=== PATIENT | male | born 1960 | race Caucasian/White ===

== ENCOUNTER 2021-08-14 09:44 | Emergency (ER) | payer BC, SELFPAY ==
[2021-08-14 10:49] LABS: ALT (SGPT) 12 U/L (8-55); AST (SGOT) 15 U/L (5-34); Albumin 3.8 g/dL (3.4-4.8); Alkaline Phosphatase 70 U/L (40-110); Anion Gap 18 mmol/L (10-20); BUN (Urea Nitrogen) 16 mg/dL (8.4-25.7); Bilirubin, Total 1.4 mg/dL (0.2-1.2); Calc. Creatinine Clearance 0 mL/min (70-130); Calcium 9.3 mg/dL (7.8-10.44); Carbon Dioxide 22 mmol/L (23-31); Chloride 100 mmol/L (98-107); Globulin 4.3 g/dL (2.4-3.5); Glucose 154 mg/dL (80-115); Potassium 3.7 mmol/L (3.5-5.1); Protein, Total 8.1 g/dL (5.8-8.1); Sodium 136 mmol/L (136-145)
[2021-08-14 11:11] LABS: #Basophils 0.2 thou/uL (0.0-0.2); #Eosinphils 0.1 thou/uL (0.0-0.7); #Monocytes 1.2 thou/uL (0.11-0.59); #Neutrophils 8.6 thou/uL (1.40-6.50); %Basophils 1.4 % (0.0-1.0); %Eosinophils 0.5 % (0.0-10.0); %Lymphocytes 8.7 % (21.0-51.0); %Neutrophils 78.4 % (42.0-75.0); Mean Corpuscular HGB CONC 34.2 g/dL (32.0-36.0); Mean Corpuscular Hemoglobin 30.9 pg (27.0-31.0); Mean Corpuscular Volume 90.3 fL (78.0-98.0); Mean Platelet Volume 7.3 fL (7.4-10.4); Platelet Count 371 thou/uL (130-400); RBC Distribution Width 12.3 % (11.5-14.5)
[2021-08-14 11:52] LABS: SARS-CoV-2 NAA Rapid Test DETECTED (NotDetected)
[2021-08-14 13:44] LABS: Troponin I Less than 0.010 ng/mL (< 0.028)
== END 2021-08-14 14:04 | disposition home or self-care (01) ==
LOC: ERS 09:44
DX: U07.1 COVID-19 (principal); J12.82 Pneumonia due to coronavirus disease 2019; I10 Essential (primary) hypertension; E11.9 Type 2 diabetes mellitus without complications; Z79.84 Long term (current) use of oral hypoglycemic drugs
CPT/HCPCS: 71045; 80053; 83880; 84484; 85025; 93005; U0002

== ENCOUNTER 2021-08-15 19:59 | Inpatient (IN) | payer BC ==
[2021-08-15 20:41] LABS: #Basophils 0.2 thou/uL (0.0-0.2); #Lymphocytes 0.6 thou/uL (1.20-3.40); #Monocytes 1.1 thou/uL (0.11-0.59); #Neutrophils 12.3 thou/uL (1.40-6.50); %Basophils 1.5 % (0.0-1.0); %Eosinophils 0.2 % (0.0-10.0); %Lymphocytes 4.4 % (21.0-51.0); %Monocytes 7.6 % (0.0-10.0); %Neutrophils 86.4 % (42.0-75.0); Hemoglobin 12.9 g/dL (14.0-18.0); Mean Corpuscular HGB CONC 33.6 g/dL (32.0-36.0); Mean Corpuscular Hemoglobin 30.9 pg (27.0-31.0); Mean Corpuscular Volume 91.9 fL (78.0-98.0); Mean Platelet Volume 6.7 fL (7.4-10.4); Platelet Count 350 thou/uL (130-400); RBC Distribution Width 12.4 % (11.5-14.5); Red Blood Cell (RBC) Count 4.19 mill/uL (4.70-6.10); White Blood Cell (WBC) Count 14.2 thou/uL (4.8-10.8)
[2021-08-15 21:03] LABS: ALT (SGPT) 65 U/L (8-55); AST (SGOT) 95 U/L (5-34); Albumin 3.6 g/dL (3.4-4.8); Alkaline Phosphatase 189 U/L (40-110); Anion Gap 19 mmol/L (10-20); BUN (Urea Nitrogen) 11 mg/dL (8.4-25.7); Bilirubin, Total 3.3 mg/dL (0.2-1.2); Calc. Creatinine Clearance 0 mL/min (70-130); Calcium 8.5 mg/dL (7.8-10.44); Carbon Dioxide 23 mmol/L (23-31); Chloride 99 mmol/L (98-107); Globulin 3.5 g/dL (2.4-3.5); Glucose 145 mg/dL (80-115); Potassium 3.3 mmol/L (3.5-5.1); Protein, Total 7.1 g/dL (5.8-8.1); Sodium 138 mmol/L (136-145)
[2021-08-15 21:17] LABS: Actual Bicarbonate (HCO3v) 27 mEq/L (22-28); Analyzer IN Cardio ER; Base Excess 1.9 mEq/L (-2.0 to +3.0); Calcium, Ionized (venous) 1.04 mmol/L (1.16-1.32); Chloride (VBG) 96 mmol/L (98-106); Potassium (VBG) 3.54 mmol/L (3.70-5.30); Sodium 137.5 mmol/L (133-146); pH (venous) 7.41 (7.32-7.43)
[2021-08-15] MEDS ORDERED: Dexamethasone 10 MG/ML VIAL ONE (21:57)
[2021-08-15] MEDS ORDERED: Azithromycin 250 MG TAB ONE (21:57)
[2021-08-15] MEDS ORDERED: cefTRIAXone\\ROCEPHIN 2 GM VIAL ONE (21:57)
[2021-08-15] MEDS ORDERED: Ondansetron ODT 4 MG TAB SL PRN (22:15)
[2021-08-15] MEDS ORDERED: Ondansetron PF 4 MG/2 ML Vial IVP PRN (22:15)
[2021-08-15] MEDS ORDERED: Acetaminophen 325 MG TAB PO PRN (22:15)
[2021-08-15] MEDS ORDERED: Acetaminophen 500 MG TAB ONE (22:27)
[2021-08-15] MEDS ORDERED: Mag-Al 1200 mg/1200 mg/30 ML UDCUP ONE (22:27)
[2021-08-15] MEDS ORDERED: Lidocaine Viscous Sol 2% 15 ml UD Cup ONE (22:27)
[2021-08-15] MEDS ORDERED: Lidocaine 2% Viscous Solution 10 ML, Aluminum & Magnesium Hydroxide 20 ML, Donnatal Eli... SSW SCH (23:00)
[2021-08-15] MEDS ORDERED: Enoxaparin Sodium 40 MG/0.4 ML SYRINGE SC SCH (23:15)
[2021-08-15] MEDS ORDERED: Ibuprofen 600 MG TAB PO PRN (23:17)
[2021-08-15] MEDS ORDERED: Dextrose 5% in Water 1,000 ML IV PRN (23:25)
[2021-08-15] MEDS ORDERED: Dextrose 50% Abboject 50 ML SYRINGE SLOW IVP PRN (23:25)
[2021-08-15] MEDS ORDERED: Albuterol Sulfate 2.5 mg/3 ml Neb NEB PRN (23:34)
[2021-08-15] MEDS ORDERED: REMDESIVIR 200 MG in Sodium Chloride 0.9% 250 ML 210 ML IV SCH (23:45)
[2021-08-16] MEDS ORDERED: Ondansetron PF 4 MG/2 ML Vial IVP PRN (00:01)
[2021-08-16] MEDS ORDERED: Potassium Chloride 20 MEQ TAB PO SCH (00:30)
[2021-08-16] MEDS ORDERED: Potassium Bicarbonate/Cit Ac 20 MEQ TAB PO SCH (02:00)
[2021-08-16] MEDS ORDERED: Atorvastatin Calcium 10 MG TAB PO SCH (02:00)
[2021-08-16] MEDS ORDERED: Enoxaparin Sodium 40 MG/0.4 ML SYRINGE ONE ×2 (02:33→09:13)
[2021-08-16] MEDS: Levothyroxine Sodium 100 MCG TAB PO SCH (04:50)
[2021-08-16 06:05] LABS: #Basophils 0.2 thou/uL (0.0-0.2); #Lymphocytes 0.7 thou/uL (1.20-3.40); #Monocytes 0.4 thou/uL (0.11-0.59); #Neutrophils 11.3 thou/uL (1.40-6.50); %Basophils 1.3 % (0.0-1.0); %Eosinophils 0.1 % (0.0-10.0); %Lymphocytes 5.2 % (21.0-51.0); %Neutrophils 90.5 % (42.0-75.0); Hemoglobin 12.3 g/dL (14.0-18.0); Mean Corpuscular Hemoglobin 31.2 pg (27.0-31.0); Mean Corpuscular Volume 91.7 fL (78.0-98.0); Platelet Count 341 thou/uL (130-400); RBC Distribution Width 12.3 % (11.5-14.5); Red Blood Cell (RBC) Count 3.95 mill/uL (4.70-6.10); White Blood Cell (WBC) Count 12.5 thou/uL (4.8-10.8)
[2021-08-16 06:27] LABS: ALT (SGPT) 70 U/L (8-55); AST (SGOT) 60 U/L (5-34); Albumin 3.6 g/dL (3.4-4.8); Alkaline Phosphatase 179 U/L (40-110); Anion Gap 19 mmol/L (10-20); BUN (Urea Nitrogen) 22 mg/dL (8.4-25.7); Bilirubin, Total 1.1 mg/dL (0.2-1.2); Calc. Creatinine Clearance 0 mL/min (70-130); Calcium 9.1 mg/dL (7.8-10.44); Carbon Dioxide 21 mmol/L (23-31); Chloride 98 mmol/L (98-107); Globulin 4.3 g/dL (2.4-3.5); Glucose 310 mg/dL (80-115); Potassium 4.1 mmol/L (3.5-5.1); Protein, Total 7.9 g/dL (5.8-8.1); Sodium 134 mmol/L (136-145)
[2021-08-16 07:36] LABS: Bacteria/HPF 1+ HPF (None Seen); Bilirubin 2+ (Negative); Blood, Urine 1+ (Negative); Clarity Cloudy (Clear); Glucose, Urine (Dipstick) 50 mg/dL (Negative); Ketone, Urine 20 mg/dL (Negative); Leukocyte Negative Leu/uL (Negative); Nitrite Negative (Negative); Protein, Urine (Dipstick) 100 mg/dL (Neg-Trace); Specific Gravity, Urine 1.035 (1.002-1.036); Urobilinogen 12 mg/dL (Less than 2)
[2021-08-16 07:38] LABS: Urine Culture Reflex No No
[2021-08-16] MEDS ORDERED: HumaLOG 300 UNITS/3 ML VIAL ONE (08:12)
[2021-08-16] MEDS: HumaLOG 300 UNITS/3 ML VIAL SC PRN ×3 (08:23→20:48)
[2021-08-16] MEDS ORDERED: Famotidine 20 MG TAB PO SCH (09:00)
[2021-08-16] MEDS: Ondansetron ODT 4 MG TAB PO PRN ×2 (09:10→15:34)
[2021-08-16] MEDS ORDERED: Dexamethasone 10 MG/ML VIAL ONE (09:13)
[2021-08-16] MEDS ORDERED: Famotidine 20 MG TAB ONE (09:13)
[2021-08-16] MEDS: Enoxaparin Sodium 40 MG/0.4 ML SYRINGE SC SCH (09:22)
[2021-08-16] MEDS ORDERED: Ondansetron ODT 4 MG TAB ONE ×2 (09:23→15:31)
[2021-08-16] MEDS: Dexamethasone 4 mg/ml Vial SLOW IVP SCH (09:25)
[2021-08-16] MEDS: Lactated Ringer's 1,000 ML IV SCH ×2 (09:28→21:12)
[2021-08-16] MEDS: metFORMIN XR 500 MG TAB PO SCH ×2 (10:32→18:41)
[2021-08-16] MEDS: guaiFENesin ER 600 MG TAB PO SCH ×2 (10:32→20:47)
[2021-08-16 10:57] VITALS: BMI 33.3
[2021-08-16] MEDS ORDERED: REMDESIVIR 200 MG in Sodium Chloride 0.9% 250 ML 210 ML IV SCH ×2 (13:30→18:00)
[2021-08-16] MEDS ORDERED: FLU VACC QS2021-22(6MOS UP)/PF 60 MCG/0.5 ML SYRINGE IM ONE (18:00)
[2021-08-16] MEDS ORDERED: Simethicone Chewable 80 MG TAB PO PRN (18:47)
[2021-08-16] MEDS: Atorvastatin Calcium 10 MG TAB PO SCH (20:47)
[2021-08-16] MEDS: Latanoprost 0.005% Ophth Soln 2.5 ml Bottle EA EYE SCH (21:59)
[2021-08-16] MEDS ORDERED: REMDESIVIR 100 MG in Sodium Chloride 0.9% 250 ML 230 ML IV SCH (23:45)
[2021-08-17] MEDS: Acetaminophen 325 MG TAB PO PRN (01:22)
[2021-08-17] MEDS: Levothyroxine Sodium 100 MCG TAB PO SCH (06:10)
[2021-08-17 07:03] LABS: #Basophils 0.1 thou/uL (0.0-0.2); #Lymphocytes 1.7 thou/uL (1.20-3.40); #Monocytes 1.1 thou/uL (0.11-0.59); #Neutrophils 9.6 thou/uL (1.40-6.50); %Basophils 0.8 % (0.0-1.0); %Eosinophils 0.1 % (0.0-10.0); %Lymphocytes 13.8 % (21.0-51.0); %Monocytes 8.5 % (0.0-10.0); %Neutrophils 76.7 % (42.0-75.0); Hemoglobin 11.6 g/dL (14.0-18.0); Mean Corpuscular HGB CONC 32.8 g/dL (32.0-36.0); Mean Corpuscular Hemoglobin 30.4 pg (27.0-31.0); Mean Corpuscular Volume 92.6 fL (78.0-98.0); Platelet Count 366 thou/uL (130-400); RBC Distribution Width 12.4 % (11.5-14.5); Red Blood Cell (RBC) Count 3.81 mill/uL (4.70-6.10); White Blood Cell (WBC) Count 12.5 thou/uL (4.8-10.8)
[2021-08-17 07:15] LABS: ALT (SGPT) 38 U/L (8-55); AST (SGOT) 15 U/L (5-34); Albumin 3.3 g/dL (3.4-4.8); Alkaline Phosphatase 130 U/L (40-110); Anion Gap 11 mmol/L (10-20); BUN (Urea Nitrogen) 25 mg/dL (8.4-25.7); Bilirubin, Total 0.5 mg/dL (0.2-1.2); Calc. Creatinine Clearance 147 mL/min (70-130); Calcium 9.2 mg/dL (7.8-10.44); Carbon Dioxide 27 mmol/L (23-31); Chloride 100 mmol/L (98-107); Glucose 160 mg/dL (80-115); Potassium 3.4 mmol/L (3.5-5.1); Protein, Total 7.3 g/dL (5.8-8.1); Sodium 135 mmol/L (136-145)
[2021-08-17] MEDS: Dexamethasone 4 mg/ml Vial SLOW IVP SCH (08:34)
[2021-08-17] MEDS: Enoxaparin Sodium 40 MG/0.4 ML SYRINGE SC SCH (08:34)
[2021-08-17] MEDS: metFORMIN XR 500 MG TAB PO SCH ×2 (08:34→17:47)
[2021-08-17] MEDS: guaiFENesin ER 600 MG TAB PO SCH ×2 (08:34→21:05)
[2021-08-17] MEDS ORDERED: Potassium Chloride 20 MEQ TAB PO SCH (09:30)
[2021-08-17] MEDS: Lantus 1000 UNITS/10 ML VIAL SC SCH (10:45)
[2021-08-17] MEDS: REMDESIVIR 100 MG in Sodium Chloride 0.9% 250 ML 230 ML IV SCH (10:46)
[2021-08-17] MEDS: Lactated Ringer's 1,000 ML IV SCH (10:47)
[2021-08-17] MEDS: HumaLOG 300 UNITS/3 ML VIAL SC PRN ×3 (11:36→21:04)
[2021-08-17] MEDS: Atorvastatin Calcium 10 MG TAB PO SCH (21:06)
[2021-08-17] MEDS: Latanoprost 0.005% Ophth Soln 2.5 ml Bottle EA EYE SCH (21:07)
[2021-08-18] MEDS: Lactated Ringer's 1,000 ML IV SCH ×3 (01:00→22:14)
[2021-08-18] MEDS: Acetaminophen 325 MG TAB PO PRN ×2 (01:43→11:27)
[2021-08-18] MEDS: Levothyroxine Sodium 100 MCG TAB PO SCH (05:13)
[2021-08-18 05:59] LABS: #Basophils 0.1 thou/uL (0.0-0.2); #Lymphocytes 1.9 thou/uL (1.20-3.40); #Monocytes 0.8 thou/uL (0.11-0.59); #Neutrophils 4.5 thou/uL (1.40-6.50); %Basophils 1.3 % (0.0-1.0); %Eosinophils 0.6 % (0.0-10.0); %Monocytes 10.3 % (0.0-10.0); %Neutrophils 61.8 % (42.0-75.0); Hemoglobin 10.5 g/dL (14.0-18.0); Mean Corpuscular Hemoglobin 30.8 pg (27.0-31.0); Mean Corpuscular Volume 93.3 fL (78.0-98.0); Mean Platelet Volume 7.2 fL (7.4-10.4); Platelet Count 288 thou/uL (130-400); RBC Distribution Width 12.3 % (11.5-14.5); Red Blood Cell (RBC) Count 3.41 mill/uL (4.70-6.10); White Blood Cell (WBC) Count 7.4 thou/uL (4.8-10.8)
[2021-08-18 06:19] LABS: ALT (SGPT) 24 U/L (8-55); AST (SGOT) 10 U/L (5-34); Albumin 3.1 g/dL (3.4-4.8); Alkaline Phosphatase 101 U/L (40-110); Anion Gap 13 mmol/L (10-20); BUN (Urea Nitrogen) 23 mg/dL (8.4-25.7); Bilirubin, Total 0.3 mg/dL (0.2-1.2); Calc. Creatinine Clearance 155 mL/min (70-130); Calcium 8.6 mg/dL (7.8-10.44); Carbon Dioxide 27 mmol/L (23-31); Chloride 103 mmol/L (98-107); Globulin 2.6 g/dL (2.4-3.5); Glucose 146 mg/dL (80-115); Potassium 4.1 mmol/L (3.5-5.1); Protein, Total 5.7 g/dL (5.8-8.1); Sodium 139 mmol/L (136-145)
[2021-08-18] MEDS: metFORMIN XR 500 MG TAB PO SCH ×2 (08:36→18:00)
[2021-08-18] MEDS: Enoxaparin Sodium 40 MG/0.4 ML SYRINGE SC SCH (08:36)
[2021-08-18] MEDS: Dexamethasone 4 mg/ml Vial SLOW IVP SCH (08:36)
[2021-08-18] MEDS: guaiFENesin ER 600 MG TAB PO SCH ×2 (08:36→22:11)
[2021-08-18] MEDS: Lantus 1000 UNITS/10 ML VIAL SC SCH (08:37)
[2021-08-18] MEDS ORDERED: Lantus 1000 UNITS/10 ML VIAL SC SCH (09:00)
[2021-08-18 10:28] LABS: INR-International Normal Ratio 1.2
[2021-08-18 10:29] LABS: PTT 39.3 sec (22.9-36.1)
[2021-08-18 10:33] LABS: CK (CPK) 41 U/L (30-200); Lipase 106 U/L (8-78)
[2021-08-18] MEDS: REMDESIVIR 100 MG in Sodium Chloride 0.9% 250 ML 230 ML IV SCH (11:26)
[2021-08-18] MEDS ORDERED: Piperacillin/Tazobactam 3.375 GM in Sodium Chloride 0.9% 100 ML IVPB SCH ×3 (13:01→18:00)
[2021-08-18] MEDS: Piperacillin/Tazobactam 3.375 GM in Sodium Chloride 0.9% 100 ML IVPB SCH (19:30)
[2021-08-18] MEDS: Atorvastatin Calcium 10 MG TAB PO SCH (22:12)
[2021-08-18] MEDS: Latanoprost 0.005% Ophth Soln 2.5 ml Bottle EA EYE SCH (22:13)
[2021-08-18] MEDS: HumaLOG 300 UNITS/3 ML VIAL SC PRN (22:14)
[2021-08-19] MEDS: Piperacillin/Tazobactam 3.375 GM in Sodium Chloride 0.9% 100 ML IVPB SCH ×3 (03:31→17:56)
[2021-08-19] MEDS: Levothyroxine Sodium 100 MCG TAB PO SCH (03:34)
[2021-08-19] MEDS: Acetaminophen 325 MG TAB PO PRN (03:34)
[2021-08-19 06:17] LABS: ALT (SGPT) 22 U/L (8-55); AST (SGOT) 12 U/L (5-34); Albumin 3.1 g/dL (3.4-4.8); Alkaline Phosphatase 91 U/L (40-110); Anion Gap 16 mmol/L (10-20); BUN (Urea Nitrogen) 18 mg/dL (8.4-25.7); Bilirubin, Total 0.4 mg/dL (0.2-1.2); Calc. Creatinine Clearance 155 mL/min (70-130); Calcium 8.6 mg/dL (7.8-10.44); Carbon Dioxide 25 mmol/L (23-31); Chloride 100 mmol/L (98-107); Globulin 3.3 g/dL (2.4-3.5); Glucose 130 mg/dL (80-115); Potassium 3.7 mmol/L (3.5-5.1); Protein, Total 6.4 g/dL (5.8-8.1); Sodium 137 mmol/L (136-145)
[2021-08-19] MEDS: REMDESIVIR 100 MG in Sodium Chloride 0.9% 250 ML 230 ML IV SCH (10:57)
[2021-08-19] MEDS: Enoxaparin Sodium 40 MG/0.4 ML SYRINGE SC SCH (10:58)
[2021-08-19] MEDS: guaiFENesin ER 600 MG TAB PO SCH ×2 (10:58→21:13)
[2021-08-19] MEDS: Dexamethasone 4 mg/ml Vial SLOW IVP SCH (10:58)
[2021-08-19] MEDS: metFORMIN XR 500 MG TAB PO SCH ×2 (10:58→17:57)
[2021-08-19] MEDS: Lantus 1000 UNITS/10 ML VIAL SC SCH (10:59)
[2021-08-19] MEDS: HumaLOG 300 UNITS/3 ML VIAL SC PRN ×2 (17:57→21:24)
[2021-08-19] MEDS: Atorvastatin Calcium 10 MG TAB PO SCH (21:13)
[2021-08-19] MEDS: Latanoprost 0.005% Ophth Soln 2.5 ml Bottle EA EYE SCH (21:14)
[2021-08-20] MEDS: Piperacillin/Tazobactam 3.375 GM in Sodium Chloride 0.9% 100 ML IVPB SCH ×2 (02:25→10:10)
[2021-08-20] MEDS: Levothyroxine Sodium 100 MCG TAB PO SCH (05:59)
[2021-08-20] MEDS: metFORMIN XR 500 MG TAB PO SCH ×2 (09:02→17:08)
[2021-08-20] MEDS: Enoxaparin Sodium 40 MG/0.4 ML SYRINGE SC SCH (09:02)
[2021-08-20] MEDS: Lantus 1000 UNITS/10 ML VIAL SC SCH (09:02)
[2021-08-20] MEDS: REMDESIVIR 100 MG in Sodium Chloride 0.9% 250 ML 230 ML IV SCH (09:03)
[2021-08-20] MEDS: guaiFENesin ER 600 MG TAB PO SCH (09:03)
[2021-08-20] MEDS: Dexamethasone 4 mg/ml Vial SLOW IVP SCH (09:03)
[2021-08-20] MEDS ORDERED: Dexamethasone 4 mg/ml Vial SLOW IVP SCH (10:45)
[2021-08-20] MEDS: HumaLOG 300 UNITS/3 ML VIAL SC PRN ×2 (12:15→17:08)
[2021-08-20 16:13] VITALS: BP 133/66; TEMP 97.8
[2021-08-21] MEDS ORDERED: Dexamethasone 4 mg/ml Vial SLOW IVP SCH (09:00)
== END 2021-08-20 17:40 | disposition home or self-care (01) | DRG 871 ==
LOC: ERS 19:59 → 2SW 22:00 → ERHOLD 22:12 → OBSVTOIN 08-16 17:25 → 2SW 08-16 17:35
PROVIDERS: ADMIT Family Medicine; ATTEND Family Medicine
PROC: 8E0ZXY6 Isolation (ICD-10-PCS; principal; 2021-08-16)
PROC: XW033E5 Introduction of Remdesivir Anti-infective into Peripheral Vein, Percutaneous Approach, New Technology Group 5 (ICD-10-PCS; 2021-08-16)
DX: A41.89 Other specified sepsis (principal); U07.1 COVID-19; J96.01 Acute respiratory failure with hypoxia; J12.82 Pneumonia due to coronavirus disease 2019; J15.9 Unspecified bacterial pneumonia; I10 Essential (primary) hypertension; E78.5 Hyperlipidemia, unspecified; E11.9 Type 2 diabetes mellitus without complications; E03.9 Hypothyroidism, unspecified; E66.9 Obesity, unspecified; H40.9 Unspecified glaucoma; Z79.899 Other long term (current) drug therapy; Z88.0 Allergy status to penicillin; Z88.6 Allergy status to analgesic agent; Z79.890 Hormone replacement therapy; Z79.84 Long term (current) use of oral hypoglycemic drugs; Z68.34 Body mass index [BMI] 34.0-34.9, adult
CPT/HCPCS: 36415; 36416; 71045; 76705; 80053; 81001; 82550; 82805; 83036; 83605; 83690; 83880; 84145; 84484; 85025; 85610; 85730; 86140; 87040; 93005; 94760; G0378; J0248; J0696; J1100; J1650; J1815; J2543; J3490; J7050; J7120; Q0162; U0002

== ENCOUNTER 2023-04-28 09:47 | Inpatient (IN) | payer BC ==
[2023-04-28] MEDS ORDERED: Ondansetron PF 4 MG/2 ML Vial ONE ×3 (10:15→18:21)
[2023-04-28] MEDS ORDERED: dilTIAZem 25 MG/5 ML VIAL ONE (10:15)
[2023-04-28 10:19] LABS: Hematocrit 54.2 % (42.0-52.0); Hemoglobin 18.4 g/dL (14.0-18.0); Mean Corpuscular HGB CONC 33.9 g/dL (32.0-36.0); Mean Corpuscular Hemoglobin 30.5 pg (27.0-31.0); Mean Corpuscular Volume 89.9 fl (78.0-98.0); Mean Platelet Volume 10.2 fL (7.4-10.4); Platelet Count 265 10x3/uL (130-400); RBC Distribution Width 13.2 % (11.5-14.5); Red Blood Cell (RBC) Count 6.03 mill/uL (4.70-6.10); White Blood Cell (WBC) Count 11.7 10x3/uL (4.8-10.8)
[2023-04-28] MEDS ORDERED: Ipratropium/Albuterol 3 ML NEB ONE (10:19)
[2023-04-28 10:21] LABS: Delete Auto Diff?? YES; Manual Diff?? YES
[2023-04-28 10:38] LABS: INR-International Normal Ratio 1.3; Prothrombin Time 17.2 sec (12.0-14.7)
[2023-04-28 10:39] LABS: PTT 36.9 sec (22.9-36.1)
[2023-04-28 10:41] LABS: ALT (SGPT) 16 U/L (8-55); AST (SGOT) 30 U/L (5-34); Albumin 4.1 g/dL (3.4-4.8); Alkaline Phosphatase 77 U/L (40-110); Anion Gap 26 mmol/L (10-20); BUN (Urea Nitrogen) 45 mg/dL (8.4-25.7); Bilirubin, Total 2.6 mg/dL (0.2-1.2); CK (CPK) 492 U/L (30-200); Calc. Creatinine Clearance 0 mL/min (70-130); Calcium 9.8 mg/dL (7.8-10.44); Carbon Dioxide 25 mmol/L (23-31); Chloride 88 mmol/L (98-107); Estimated GFR 43; Globulin 3.6 g/dL (2.4-3.5); Glucose 251 mg/dL (80-115); Lipase 63 U/L (8-78); Protein, Total 7.7 g/dL (5.8-8.1); Sodium 135 mmol/L (136-145)
[2023-04-28 10:45] LABS: Troponin I 0.037 ng/mL (< 0.028)
[2023-04-28 10:46] LABS: Band 36 % (5-11); Burr Cells MODERATE= 6-15 cells HPF (0-1); CellaVision Operator ID LAB.GE; Large Platelets 1.9 % (0-5); Lymphocytes 7 % (21-51); Metamyelocyte 8 % (0-0); Monocytes 6 % (0-10); Neutrophil 39 % (42-75); Platelet Adequacy Comment Platelets Normal; Polychromasia SLIGHT = 2-3 cells HPF (0-2); Reactive Lymphocytes 5 % (0-10); Total Cell Count 104
[2023-04-28] MEDS ORDERED: LevoFLOXacin 750 mg/D5W 150 ml Premix Bag ONE (11:06)
[2023-04-28] MEDS ORDERED: Piperacillin/Tazobactam 4.5 GM VIAL ONE (11:55)
[2023-04-28] MEDS ORDERED: Glucagon 1 MG/ML KIT IM PRN (12:12)
[2023-04-28] MEDS ORDERED: Dextrose 50% Abboject 50 ML SYRINGE SLOW IVP PRN (12:12)
[2023-04-28] MEDS ORDERED: Dextrose 5% in Water 1,000 ML IV PRN (12:12)
[2023-04-28] MEDS ORDERED: HumaLOG 300 UNITS/3 ML VIAL SC PRN (12:16)
[2023-04-28] MEDS ORDERED: Lactated Ringer's 1,000 ML IV SCH (12:30)
[2023-04-28] MEDS ORDERED: Ondansetron PF 4 MG/2 ML Vial IVP PRN ×2 (12:45→13:20)
[2023-04-28] MEDS ORDERED: dilTIAZem 125 MG in Sodium Chloride 0.9% 100 ML IVPB SCH ×2 (12:45→15:00)
[2023-04-28] MEDS ORDERED: Acetaminophen 325 MG TAB PO PRN (12:46)
[2023-04-28] MEDS ORDERED: Ondansetron ODT 4 MG TAB PO PRN (12:46)
[2023-04-28 13:12] LABS: Magnesium 1.9 mg/dL (1.6-2.6); Phosphorus 4.1 mg/dL (2.3-4.7)
[2023-04-28 14:09] LABS: Lactic Acid 3.5 mmol/L (0.5-2.2)
[2023-04-28 14:22] LABS: Troponin I 0.011 ng/mL (< 0.028)
[2023-04-28] MEDS: Lactated Ringer's 1,000 ML IV SCH ×2 (14:45→22:40)
[2023-04-28] MEDS ORDERED: Iopamidol-370 76% 500 ML MDV (1 ML CHARGE) ONE (15:02)
[2023-04-28] MEDS ORDERED: Heparin 25,000 units/D5W 500 ML IVPB SCH (15:30)
[2023-04-28] MEDS ORDERED: Heparin 10,000 UNITS/ 10 ML VIAL SLOW IVP SCH (15:30)
[2023-04-28] MEDS ORDERED: Amiodarone 450 MG in Dextrose 5% in Water 250 ML IVPB SCH (15:45)
[2023-04-28] MEDS: Amiodarone 450 MG, Admixture Fee 1 EACH in Dextrose 5% in Water 250 ML IVPB SCH (16:28)
[2023-04-28] MEDS: Piperacillin/Tazobactam 3.375 GM in Sodium Chloride 0.9% 100 ML IVPB SCH ×2 (16:28→22:14)
[2023-04-28] MEDS ORDERED: Piperacillin/Tazobactam 4.5 GM in Sodium Chloride 0.9% 100 ML IVPB SCH (18:00)
[2023-04-28] MEDS ORDERED: Midazolam HCl 2 mg/2 ml Vial ONE (18:04)
[2023-04-28] MEDS ORDERED: SUGAMMADEX SODIUM 200 MG/2 ML VIAL ONE (18:04)
[2023-04-28] MEDS ORDERED: fentaNYL 50 mcg/mL 1 mL Vial ONE ×2 (18:04→21:29)
[2023-04-28] MEDS ORDERED: Vasopressin 20 UNITS/ML VIAL ONE (18:04)
[2023-04-28] MEDS ORDERED: Bupivacaine 0.25% HCL 30 ML VIAL ONE (18:06)
[2023-04-28] MEDS ORDERED: EPINEPHrine 1 MG/ML AMP ONE (18:06)
[2023-04-28] MEDS ORDERED: Rocuronium Bromide 10 MG/ML (10ML VIAL) ONE (18:21)
[2023-04-28] MEDS ORDERED: PROPOFOL 200 MG/20 ML VIAL ONE (18:21)
[2023-04-28] MEDS ORDERED: Esmolol 100 MG/10 ML VIAL ONE (18:21)
[2023-04-28] MEDS ORDERED: Dexamethasone 20 MG/5 ML VIAL ONE (18:21)
[2023-04-28] MEDS ORDERED: Lidocaine 1% PF 5 ML VIAL ONE (18:21)
[2023-04-28] MEDS ORDERED: Ondansetron HCl/PF 4 MG/2 ML Vial IVP PRN (20:48)
[2023-04-28] MEDS ORDERED: Promethazine HCl 25 MG/ML VIAL IM PRN (20:48)
[2023-04-28] MEDS ORDERED: traMADol HCl 50 MG TAB PO PRN (20:52)
[2023-04-28] MEDS ORDERED: Heparin 5,000 UNITS/ML VIAL SC SCH (21:00)
[2023-04-28] MEDS: Acetaminophen 325 MG TAB PO SCH (22:09)
[2023-04-28] MEDS: Morphine 2 MG/ML VIAL SLOW IVP PRN (22:14)
[2023-04-29 00:31] LABS: Lactic Acid 1.7 mmol/L (0.5-2.2)
[2023-04-29] MEDS: Morphine 2 MG/ML VIAL SLOW IVP PRN ×2 (01:42→08:27)
[2023-04-29] MEDS: Amiodarone 450 MG, Admixture Fee 1 EACH in Dextrose 5% in Water 250 ML IVPB SCH ×2 (02:07→14:22)
[2023-04-29] MEDS: Acetaminophen 325 MG TAB PO SCH ×4 (04:43→20:47)
[2023-04-29] MEDS: Lactated Ringer's 1,000 ML IV SCH ×3 (04:44→19:41)
[2023-04-29] MEDS: HumaLOG 300 UNITS/3 ML VIAL SC PRN ×3 (06:21→17:10)
[2023-04-29 06:44] LABS: Mean Corpuscular HGB CONC 33.6 g/dL (32.0-36.0); Mean Corpuscular Hemoglobin 30.7 pg (27.0-31.0); Mean Corpuscular Volume 91.6 fl (78.0-98.0); Mean Platelet Volume 10.5 fL (7.4-10.4); Platelet Count 222 10x3/uL (130-400); RBC Distribution Width 13.4 % (11.5-14.5); Red Blood Cell (RBC) Count 4.88 mill/uL (4.70-6.10); White Blood Cell (WBC) Count 7.3 10x3/uL (4.8-10.8)
[2023-04-29 06:47] LABS: ALT (SGPT) 24 U/L (8-55); AST (SGOT) 38 U/L (5-34); Albumin 3.4 g/dL (3.4-4.8); Alkaline Phosphatase 67 U/L (40-110); Anion Gap 18 mmol/L (10-20); BUN (Urea Nitrogen) 34 mg/dL (8.4-25.7); Bilirubin, Total 1.7 mg/dL (0.2-1.2); Calc. Creatinine Clearance 88 mL/min (70-130); Calcium 9.3 mg/dL (7.8-10.44); Carbon Dioxide 27 mmol/L (23-31); Chloride 93 mmol/L (98-107); Estimated GFR 64; Globulin 3.7 g/dL (2.4-3.5); Glucose 270 mg/dL (80-115); Potassium 3.8 mmol/L (3.5-5.1); Protein, Total 7.1 g/dL (5.8-8.1); Sodium 134 mmol/L (136-145)
[2023-04-29 07:03] LABS: Hematocrit 44.7 % (42.0-52.0)
[2023-04-29 07:04] LABS: Delete Auto Diff?? YES; Manual Diff?? YES
[2023-04-29] MEDS: Piperacillin/Tazobactam 3.375 GM in Sodium Chloride 0.9% 100 ML IVPB SCH ×3 (08:26→23:29)
[2023-04-29 08:31] LABS: Band 26 % (5-11); Burr Cells SLIGHT = 2-5 cells HPF (0-1); CellaVision Operator ID LAB.GE; Lymphocytes 1 % (21-51); Metamyelocyte 4 % (0-0); Monocytes 9 % (0-10); Neutrophil 60 % (42-75); Platelet Adequacy Comment Platelets Normal; Polychromasia SLIGHT = 2-3 cells HPF (0-2); Total Cell Count 103
[2023-04-29] MEDS ORDERED: Heparin 10,000 UNITS/ 10 ML VIAL SLOW IVP SCH (09:45)
[2023-04-29] MEDS ORDERED: Heparin 25,000 units/D5W 500 ML IVPB SCH (09:45)
[2023-04-29] MEDS ORDERED: VANCOMYCIN IV IVPB PRN (09:53)
[2023-04-29 10:05] LABS: Hematocrit 46.6 % (42.0-52.0); Hemoglobin 15.8 g/dL (14.0-18.0); Platelet Count 203 10x3/uL (130-400)
[2023-04-29] MEDS ORDERED: VANCOMYCIN 2 GRAM/500 ML BAG 2 GM in Premix Bag 1 BAG IVPB SCH (10:30)
[2023-04-29] MEDS: Insulin Glargine 30 UNITS/0.3 ML VIAL SC SCH (10:41)
[2023-04-29] MEDS ORDERED: traMADol HCl 50 MG TAB PO PRN (13:52)
[2023-04-29 14:04] VITALS: BMI 32.3
[2023-04-29] MEDS: traMADol HCl 50 MG TAB PO SCH ×2 (17:09→23:29)
[2023-04-29 17:46] LABS: INR-International Normal Ratio 1.3; PTT 40.7 sec (22.9-36.1); Prothrombin Time 17.1 sec (12.0-14.7)
[2023-04-29] MEDS: Senokot S 8.6-50 MG TAB PO SCH (19:47)
[2023-04-29] MEDS ORDERED: Vancomycin 1.5 GRAM/300 ML BAG 1.5 GM in Premix Bag 1 BAG IVPB SCH (23:59)
[2023-04-30] MEDS: Lactated Ringer's 1,000 ML IV SCH ×2 (03:41)
[2023-04-30] MEDS: Acetaminophen 325 MG TAB PO SCH ×4 (03:43→21:47)
[2023-04-30] MEDS: traMADol HCl 50 MG TAB PO SCH ×4 (06:29→23:38)
[2023-04-30 06:33] LABS: #Eosinphils 0.3 thou/uL (0.0-0.7); #Monocytes 0.7 thou/uL (0.11-0.59); #Neutrophils 5.8 thou/uL (1.40-6.50); %Basophils 0.4 % (0.0-1.0); %Eosinophils 3.7 % (0.0-10.0); %Lymphocytes 8.6 % (21.0-51.0); %Monocytes 9.1 % (0.0-10.0); %Neutrophils 77.3 % (42.0-75.0); Hematocrit 42.2 % (42.0-52.0); Mean Corpuscular HGB CONC 33.2 g/dL (32.0-36.0); Mean Corpuscular Hemoglobin 30.8 pg (27.0-31.0); Mean Platelet Volume 10.2 fL (7.4-10.4); Platelet Count 215 10x3/uL (130-400); RBC Distribution Width 13.6 % (11.5-14.5); Red Blood Cell (RBC) Count 4.54 mill/uL (4.70-6.10); White Blood Cell (WBC) Count 7.6 10x3/uL (4.8-10.8)
[2023-04-30 06:57] LABS: ALT (SGPT) 23 U/L (8-55); AST (SGOT) 26 U/L (5-34); Albumin 3.5 g/dL (3.4-4.8); Alkaline Phosphatase 61 U/L (40-110); Anion Gap 15 mmol/L (10-20); BUN (Urea Nitrogen) 25 mg/dL (8.4-25.7); Bilirubin, Total 0.7 mg/dL (0.2-1.2); Calc. Creatinine Clearance 104 mL/min (70-130); Calcium 9.5 mg/dL (7.8-10.44); Carbon Dioxide 27 mmol/L (23-31); Chloride 95 mmol/L (98-107); Estimated GFR 77; Globulin 3.6 g/dL (2.4-3.5); Glucose 193 mg/dL (80-115); Potassium 3.8 mmol/L (3.5-5.1); Protein, Total 7.1 g/dL (5.8-8.1); Sodium 133 mmol/L (136-145)
[2023-04-30] MEDS: Amiodarone 450 MG, Admixture Fee 1 EACH in Dextrose 5% in Water 250 ML IVPB SCH ×2 (07:13→23:35)
[2023-04-30] MEDS ORDERED: Calcium Carbonate 500 MG ChewTAB PO PRN (08:46)
[2023-04-30] MEDS: Polyethylene Glycol 3350 17 GM Packet PO SCH ×2 (08:46→21:33)
[2023-04-30] MEDS: Piperacillin/Tazobactam 3.375 GM in Sodium Chloride 0.9% 100 ML IVPB SCH (08:47)
[2023-04-30] MEDS: Insulin Glargine 30 UNITS/0.3 ML VIAL SC SCH (08:48)
[2023-04-30] MEDS: Senokot S 8.6-50 MG TAB PO SCH ×2 (08:49→21:47)
[2023-04-30] MEDS ORDERED: Polyethylene Glycol 3350 17 GM Packet PO SCH ×2 (09:00→21:00)
[2023-04-30] MEDS: Calcium Carbonate 500 MG ChewTAB PO PRN ×4 (09:37→23:34)
[2023-04-30] MEDS ORDERED: Lisinopril 5 MG TAB PO SCH (10:30)
[2023-04-30] MEDS: HumaLOG 300 UNITS/3 ML VIAL SC PRN (11:05)
[2023-04-30] MEDS ORDERED: dilTIAZem 30 MG TAB PO SCH ×2 (13:30→21:00)
[2023-04-30] MEDS: Simethicone Chewable 80 MG TAB PO PRN (16:32)
[2023-04-30] MEDS: metFORMIN XR 500 MG ER.TAB PO SCH (16:32)
[2023-04-30] MEDS ORDERED: Famotidine 20 MG TAB PO SCH (18:15)
[2023-04-30] MEDS ORDERED: traZODone HCl 50 MG TAB PO SCH (21:00)
[2023-04-30] MEDS: Atorvastatin Calcium 10 MG TAB PO SCH (21:32)
[2023-04-30] MEDS: Latanoprost 0.005% Ophth Soln 2.5 ml Bottle EA EYE SCH (21:34)
[2023-05-01] MEDS: Acetaminophen 325 MG TAB PO SCH ×2 (03:58→08:27)
[2023-05-01] MEDS: Calcium Carbonate 500 MG ChewTAB PO PRN (03:59)
[2023-05-01 04:23] LABS: #Monocytes 1.2 thou/uL (0.11-0.59); #Neutrophils 7.6 thou/uL (1.40-6.50); %Basophils 0.4 % (0.0-1.0); %Eosinophils 0.1 % (0.0-10.0); %Lymphocytes 10.5 % (21.0-51.0); %Monocytes 11.6 % (0.0-10.0); %Neutrophils 76.3 % (42.0-75.0); Hematocrit 46.5 % (42.0-52.0); Hemoglobin 15.3 g/dL (14.0-18.0); Mean Corpuscular HGB CONC 32.9 g/dL (32.0-36.0); Mean Corpuscular Hemoglobin 30.2 pg (27.0-31.0); Mean Corpuscular Volume 91.9 fl (78.0-98.0); Mean Platelet Volume 10.1 fL (7.4-10.4); Platelet Count 241 10x3/uL (130-400); RBC Distribution Width 13.8 % (11.5-14.5); Red Blood Cell (RBC) Count 5.06 mill/uL (4.70-6.10)
[2023-05-01 04:49] LABS: ALT (SGPT) 21 U/L (8-55); AST (SGOT) 19 U/L (5-34); Albumin 3.6 g/dL (3.4-4.8); Alkaline Phosphatase 67 U/L (40-110); Anion Gap 17 mmol/L (10-20); BUN (Urea Nitrogen) 21 mg/dL (8.4-25.7); Bilirubin, Total 0.6 mg/dL (0.2-1.2); Calc. Creatinine Clearance 107 mL/min (70-130); Calcium 10.7 mg/dL (7.8-10.44); Carbon Dioxide 30 mmol/L (23-31); Chloride 90 mmol/L (98-107); Estimated GFR 80; Globulin 3.8 g/dL (2.4-3.5); Glucose 183 mg/dL (80-115); Magnesium 1.8 mg/dL (1.6-2.6); Potassium 3.6 mmol/L (3.5-5.1); Protein, Total 7.4 g/dL (5.8-8.1); Sodium 133 mmol/L (136-145)
[2023-05-01] MEDS ORDERED: LevoFLOXacin 500 MG TAB PO SCH (06:00)
[2023-05-01] MEDS: traMADol HCl 50 MG TAB PO SCH (06:29)
[2023-05-01] MEDS: Levothyroxine Sodium 100 MCG TAB PO SCH (06:29)
[2023-05-01] MEDS ORDERED: Potassium Chloride 20 MEQ TAB PO SCH (07:00)
[2023-05-01] MEDS: Insulin Glargine 30 UNITS/0.3 ML VIAL SC SCH (08:25)
[2023-05-01] MEDS: Senokot S 8.6-50 MG TAB PO SCH (08:26)
[2023-05-01] MEDS: Lisinopril 10 MG TAB PO SCH (08:26)
[2023-05-01] MEDS: Magnesium Oxide 400 MG TAB PO SCH ×2 (08:26→21:40)
[2023-05-01] MEDS: dilTIAZem CD 120 MG CAP PO SCH (08:27)
[2023-05-01] MEDS: metFORMIN XR 500 MG ER.TAB PO SCH (08:27)
[2023-05-01] MEDS: Polyethylene Glycol 3350 17 GM Packet PO SCH (08:28)
[2023-05-01] MEDS ORDERED: Morphine 4 MG/ML VIAL SLOW IVP PRN (08:37)
[2023-05-01] MEDS: Simethicone Chewable 80 MG TAB PO PRN (08:45)
[2023-05-01] MEDS ORDERED: Lisinopril 5 MG TAB PO SCH ×2 (09:00)
[2023-05-01] MEDS ORDERED: dilTIAZem CD 180 MG CAP PO SCH (09:00)
[2023-05-01] MEDS: LevoFLOXacin 750 mg/D5W 750 MG in Premix Bag 1 BAG IVPB SCH (09:30)
[2023-05-01] MEDS: Pantoprazole 40 MG VIAL IVP SCH ×2 (09:30→21:40)
[2023-05-01 10:32] LABS: Hematocrit 43.5 % (42.0-52.0); Hemoglobin 14.6 g/dL (14.0-18.0); Platelet Count 239 10x3/uL (130-400)
[2023-05-01] MEDS: Ketorolac Tromethamine 30 MG/ML VIAL IVP SCH ×2 (11:15→17:57)
[2023-05-01] MEDS: NS 0.9% w/ 20 MEQ KCL 1,000 ML/1,000 ML BAG IV SCH ×3 (11:18→22:35)
[2023-05-01] MEDS: Latanoprost 0.005% Ophth Soln 2.5 ml Bottle EA EYE SCH (21:40)
[2023-05-02] MEDS: Ketorolac Tromethamine 30 MG/ML VIAL IVP SCH ×4 (00:14→17:21)
[2023-05-02] MEDS: traZODone HCl 50 MG TAB PO PRN ×2 (00:39→20:14)
[2023-05-02 04:22] LABS: Hematocrit 44.2 % (42.0-52.0); Hemoglobin 14.2 g/dL (14.0-18.0); Mean Corpuscular HGB CONC 32.1 g/dL (32.0-36.0); Mean Corpuscular Hemoglobin 30.6 pg (27.0-31.0); Mean Platelet Volume 10.1 fL (7.4-10.4); Platelet Count 201 10x3/uL (130-400); Red Blood Cell (RBC) Count 4.64 mill/uL (4.70-6.10); White Blood Cell (WBC) Count 6.8 10x3/uL (4.8-10.8)
[2023-05-02 04:33] LABS: Mean Corpuscular Volume 95.3 fl (78.0-98.0)
[2023-05-02 04:34] LABS: Delete Auto Diff?? YES; Manual Diff?? YES
[2023-05-02 04:55] LABS: ALT (SGPT) 16 U/L (8-55); AST (SGOT) 29 U/L (5-34); Alkaline Phosphatase 55 U/L (40-110); Anion Gap 15 mmol/L (10-20); BUN (Urea Nitrogen) 23 mg/dL (8.4-25.7); Bilirubin, Total 0.5 mg/dL (0.2-1.2); Calc. Creatinine Clearance 129 mL/min (70-130); Calcium 9.9 mg/dL (7.8-10.44); Carbon Dioxide 24 mmol/L (23-31); Chloride 97 mmol/L (98-107); Estimated GFR 97; Glucose 104 mg/dL (80-115); Magnesium 1.5 mg/dL (1.6-2.6); Potassium 5.2 mmol/L (3.5-5.1); Sodium 131 mmol/L (136-145)
[2023-05-02] MEDS ORDERED: Magnesium 2 GM/50 ML(in water) 2 GM in Premix Bag 1 BAG IVPB SCH (05:30)
[2023-05-02 05:54] LABS: Burr Cells SLIGHT = 2-5 cells HPF (0-1); CellaVision Operator ID lab.sh2; Hypochromia SLIGHT = 6-15 cells HPF (0-5); Large Platelets 4.1 % (0-5); Lymphocytes 9 % (21-51); Macrocytosis SLIGHT = 6-15 cells HPF (0-5); Monocytes 5 % (0-10); Neutrophil 86 % (42-75); Ovalocytes SLIGHT = 2-5 cells HPF (0-1); Platelet Adequacy Comment Platelets Normal; Poikilocytosis MODERATE=16-30 cells HPF (0-5); Polychromasia SLIGHT = 2-3 cells HPF (0-2); Smudge Cells 15.3 %; Total Cell Count 98
[2023-05-02] MEDS: NS 0.9% w/ 20 MEQ KCL 1,000 ML/1,000 ML BAG IV SCH (08:28)
[2023-05-02] MEDS: LevoFLOXacin 750 mg/D5W 750 MG in Premix Bag 1 BAG IVPB SCH (08:30)
[2023-05-02] MEDS: Sodium Chloride 0.9% 1,000 ML IV SCH ×2 (08:30→16:00)
[2023-05-02] MEDS: Lisinopril 10 MG TAB PO SCH (08:30)
[2023-05-02] MEDS: dilTIAZem CD 120 MG CAP PO SCH (08:30)
[2023-05-02] MEDS: Pantoprazole 40 MG VIAL IVP SCH ×2 (08:31→20:15)
[2023-05-02] MEDS: Insulin Glargine 30 UNITS/0.3 ML VIAL SC SCH (08:31)
[2023-05-02] MEDS ORDERED: Insulin Glargine 30 UNITS/0.3 ML VIAL SC SCH (10:00)
[2023-05-02] MEDS: Latanoprost 0.005% Ophth Soln 2.5 ml Bottle EA EYE SCH (20:14)
[2023-05-02] MEDS: Atorvastatin Calcium 10 MG TAB PO SCH (20:14)
[2023-05-03] MEDS: Ketorolac Tromethamine 30 MG/ML VIAL IVP SCH ×4 (00:24→18:04)
[2023-05-03] MEDS: Sodium Chloride 0.9% 1,000 ML IV SCH ×3 (00:24→16:32)
[2023-05-03 04:19] LABS: Hematocrit 36.4 % (42.0-52.0); Mean Corpuscular Volume 94.1 fl (78.0-98.0); Mean Platelet Volume 10.1 fL (7.4-10.4); Platelet Count 220 10x3/uL (130-400); RBC Distribution Width 13.8 % (11.5-14.5); Red Blood Cell (RBC) Count 3.87 mill/uL (4.70-6.10); White Blood Cell (WBC) Count 10.4 10x3/uL (4.8-10.8)
[2023-05-03 04:22] LABS: Delete Auto Diff?? YES; Manual Diff?? YES
[2023-05-03 04:45] LABS: ALT (SGPT) 14 U/L (8-55); AST (SGOT) 15 U/L (5-34); Albumin 2.9 g/dL (3.4-4.8); Alkaline Phosphatase 57 U/L (40-110); Anion Gap 16 mmol/L (10-20); BUN (Urea Nitrogen) 17 mg/dL (8.4-25.7); Bilirubin, Total 0.6 mg/dL (0.2-1.2); Calc. Creatinine Clearance 152 mL/min (70-130); Calcium 8.5 mg/dL (7.8-10.44); Carbon Dioxide 20 mmol/L (23-31); Chloride 100 mmol/L (98-107); Estimated GFR 102; Globulin 2.9 g/dL (2.4-3.5); Glucose 125 mg/dL (80-115); Magnesium 1.6 mg/dL (1.6-2.6); Potassium 4.5 mmol/L (3.5-5.1); Protein, Total 5.8 g/dL (5.8-8.1); Sodium 131 mmol/L (136-145)
[2023-05-03 04:59] LABS: Band 24 % (5-11); CellaVision Operator ID LAB.CLH1; Lymphocytes 5 % (21-51); Monocytes 4 % (0-10); Neutrophil 66 % (42-75); Platelet Adequacy Comment Platelets Normal; Polychromasia SLIGHT = 2-3 cells HPF (0-2); Reactive Lymphocytes 1 % (0-10); Total Cell Count 100
[2023-05-03] MEDS: Pantoprazole 40 MG VIAL IVP SCH ×2 (07:55→21:01)
[2023-05-03] MEDS: LevoFLOXacin 750 mg/D5W 750 MG in Premix Bag 1 BAG IVPB SCH (07:55)
[2023-05-03] MEDS: dilTIAZem CD 120 MG CAP PO SCH (07:55)
[2023-05-03] MEDS: Insulin Glargine 30 UNITS/0.3 ML VIAL SC SCH (07:56)
[2023-05-03] MEDS: Lisinopril 10 MG TAB PO SCH (07:56)
[2023-05-03] MEDS ORDERED: Magnesium Sulfate In Water 4 GM in Premix Bag 1 BAG IVPB SCH (08:45)
[2023-05-03] MEDS ORDERED: Apixaban 5 MG TAB PO SCH (21:00)
[2023-05-03] MEDS: Atorvastatin Calcium 10 MG TAB PO SCH (21:01)
[2023-05-03] MEDS: traZODone HCl 50 MG TAB PO PRN (21:01)
[2023-05-03] MEDS: Latanoprost 0.005% Ophth Soln 2.5 ml Bottle EA EYE SCH (21:01)
[2023-05-04] MEDS: Ketorolac Tromethamine 30 MG/ML VIAL IVP SCH ×2 (01:04→05:09)
[2023-05-04] MEDS: Sodium Chloride 0.9% 1,000 ML IV SCH ×2 (02:44→08:26)
[2023-05-04] MEDS: Levothyroxine Sodium 100 MCG TAB PO SCH (05:09)
[2023-05-04 05:20] LABS: Hematocrit 34.2 % (42.0-52.0); Hemoglobin 11.3 g/dL (14.0-18.0); Mean Corpuscular Hemoglobin 31.1 pg (27.0-31.0); Mean Corpuscular Volume 94.2 fl (78.0-98.0); Mean Platelet Volume 10.2 fL (7.4-10.4); Platelet Count 216 10x3/uL (130-400); Red Blood Cell (RBC) Count 3.63 mill/uL (4.70-6.10); White Blood Cell (WBC) Count 9.8 10x3/uL (4.8-10.8)
[2023-05-04 05:26] LABS: Delete Auto Diff?? YES; Manual Diff?? YES
[2023-05-04 05:49] LABS: Band 6 % (5-11); CellaVision Operator ID lab.sh2; Hypochromia SLIGHT = 6-15 cells HPF (0-5); Lymphocytes 6 % (21-51); Macrocytosis SLIGHT = 6-15 cells HPF (0-5); Monocytes 10 % (0-10); Neutrophil 78 % (42-75); Platelet Adequacy Comment Platelets Normal; Polychromasia SLIGHT = 2-3 cells HPF (0-2); Smudge Cells 6.9 %; Total Cell Count 101
[2023-05-04 07:29] LABS: AST (SGOT) 15 U/L (5-34); Albumin 2.8 g/dL (3.4-4.8); Alkaline Phosphatase 55 U/L (40-110); Anion Gap 15 mmol/L (10-20); BUN (Urea Nitrogen) 15 mg/dL (8.4-25.7); Bilirubin, Total 0.7 mg/dL (0.2-1.2); Calc. Creatinine Clearance 139 mL/min (70-130); Calcium 7.9 mg/dL (7.8-10.44); Carbon Dioxide 22 mmol/L (23-31); Chloride 99 mmol/L (98-107); Estimated GFR 99; Glucose 112 mg/dL (80-115); Magnesium 2.1 mg/dL (1.6-2.6); Potassium 4.3 mmol/L (3.5-5.1); Protein, Total 5.8 g/dL (5.8-8.1); Sodium 132 mmol/L (136-145)
[2023-05-04 07:30] LABS: ALT (SGPT) 15 U/L (8-55)
[2023-05-04] MEDS ORDERED: Sodium Chloride 0.9% 1,000 ML IV SCH (08:03)
[2023-05-04] MEDS: LevoFLOXacin 750 mg/D5W 750 MG in Premix Bag 1 BAG IVPB SCH (08:35)
[2023-05-04] MEDS: Insulin Glargine 30 UNITS/0.3 ML VIAL SC SCH (08:36)
[2023-05-04] MEDS: Pantoprazole 40 MG VIAL IVP SCH (08:36)
[2023-05-04] MEDS: Lisinopril 10 MG TAB PO SCH (08:36)
[2023-05-04] MEDS: metFORMIN XR 500 MG ER.TAB PO SCH ×2 (08:36→18:09)
[2023-05-04] MEDS: dilTIAZem CD 120 MG CAP PO SCH (08:36)
[2023-05-04] MEDS: Saccharomyces boulardii 250 MG CAP PO SCH (08:36)
[2023-05-04] MEDS: Polyethylene Glycol 3350 17 GM Packet PO SCH (10:25)
[2023-05-04] MEDS: Senokot S 8.6-50 MG TAB PO SCH ×2 (10:25→21:29)
[2023-05-04] MEDS ORDERED: Magnesium Citrate 300 ML BOT PO SCH (12:30)
[2023-05-04] MEDS: Ibuprofen 600 MG TAB PO SCH ×2 (14:10→21:22)
[2023-05-04] MEDS: Amoxicillin/Potassium Clav 875 MG TAB PO SCH (21:21)
[2023-05-04] MEDS: Latanoprost 0.005% Ophth Soln 2.5 ml Bottle EA EYE SCH (21:23)
[2023-05-04] MEDS: Atorvastatin Calcium 10 MG TAB PO SCH (21:23)
[2023-05-05] MEDS: Levothyroxine Sodium 100 MCG TAB PO SCH (05:42)
[2023-05-05 06:31] LABS: Hematocrit 34.6 % (42.0-52.0); Hemoglobin 11.3 g/dL (14.0-18.0); Mean Corpuscular HGB CONC 32.7 g/dL (32.0-36.0); Mean Corpuscular Hemoglobin 30.3 pg (27.0-31.0); Mean Corpuscular Volume 92.8 fl (78.0-98.0); Platelet Count 246 10x3/uL (130-400); RBC Distribution Width 13.9 % (11.5-14.5); Red Blood Cell (RBC) Count 3.73 mill/uL (4.70-6.10); White Blood Cell (WBC) Count 9.9 10x3/uL (4.8-10.8)
[2023-05-05 06:32] LABS: Delete Auto Diff?? YES; Manual Diff?? YES
[2023-05-05 06:52] LABS: Band 18 % (5-11); CellaVision Operator ID LAB.CLH1; Hypochromia SLIGHT = 6-15 cells HPF (0-5); Lymphocytes 5 % (21-51); Metamyelocyte 1 % (0-0); Monocytes 6 % (0-10); Neutrophil 69 % (42-75); Platelet Adequacy Comment Platelets Normal; Polychromasia SLIGHT = 2-3 cells HPF (0-2); Total Cell Count 101
[2023-05-05 07:00] LABS: ALT (SGPT) 13 U/L (8-55); AST (SGOT) 17 U/L (5-34); Albumin 3.1 g/dL (3.4-4.8); Alkaline Phosphatase 78 U/L (40-110); Anion Gap 15 mmol/L (10-20); BUN (Urea Nitrogen) 11 mg/dL (8.4-25.7); Bilirubin, Total 0.9 mg/dL (0.2-1.2); Calc. Creatinine Clearance 152 mL/min (70-130); Calcium 8.3 mg/dL (7.8-10.44); Carbon Dioxide 22 mmol/L (23-31); Chloride 99 mmol/L (98-107); Estimated GFR 102; Globulin 3.3 g/dL (2.4-3.5); Glucose 114 mg/dL (80-115); Potassium 4.1 mmol/L (3.5-5.1); Protein, Total 6.4 g/dL (5.8-8.1); Sodium 132 mmol/L (136-145)
[2023-05-05] MEDS: metFORMIN XR 500 MG ER.TAB PO SCH (09:07)
[2023-05-05] MEDS: Amoxicillin/Potassium Clav 875 MG TAB PO SCH (09:07)
[2023-05-05] MEDS: Ibuprofen 600 MG TAB PO SCH ×2 (09:08→15:54)
[2023-05-05] MEDS: Lisinopril 10 MG TAB PO SCH (09:08)
[2023-05-05] MEDS: Polyethylene Glycol 3350 17 GM Packet PO SCH (09:08)
[2023-05-05] MEDS: Saccharomyces boulardii 250 MG CAP PO SCH (09:09)
[2023-05-05] MEDS: Senokot S 8.6-50 MG TAB PO SCH (09:09)
[2023-05-05] MEDS: Insulin Glargine 30 UNITS/0.3 ML VIAL SC SCH (10:52)
[2023-05-05] MEDS: dilTIAZem CD 120 MG CAP PO SCH (12:27)
[2023-05-05] MEDS ORDERED: Famotidine 20 MG TAB PO SCH (13:00)
[2023-05-05 16:28] VITALS: BP 147/76; TEMP 98.1
[2023-05-06] MEDS ORDERED: Aspirin 81 mg Enteric Coated Tablet PO SCH (09:00)
== END 2023-05-05 16:43 | disposition home or self-care (01) | DRG 853 ==
LOC: ERS 09:47 → 2NO 12:18 → CCU 05-04 09:00 → 2NO 05-04 09:01 → T4-A 05-04 22:47
PROVIDERS: ADMIT Family Medicine; ATTEND Family Medicine
PROC: 0FT40ZZ Resection of Gallbladder, Open Approach (ICD-10-PCS; principal; 2023-04-28)
PROC: 0FJ44ZZ Inspection of Gallbladder, Percutaneous Endoscopic Approach (ICD-10-PCS; 2023-04-28)
PROC: 3E033XZ Introduction of Vasopressor into Peripheral Vein, Percutaneous Approach (ICD-10-PCS; 2023-04-28)
DX: A41.9 Sepsis, unspecified organism (principal); I21.A1 Myocardial infarction type 2; J18.9 Pneumonia, unspecified organism; N17.9 Acute kidney failure, unspecified; E87.20 Acidosis, unspecified; K80.00 Calculus of gallbladder with acute cholecystitis without obstruction; K91.89 Other postprocedural complications and disorders of digestive system; K56.7 Ileus, unspecified; I48.91 Unspecified atrial fibrillation; E11.9 Type 2 diabetes mellitus without complications; E03.9 Hypothyroidism, unspecified; E78.5 Hyperlipidemia, unspecified; F32.A Depression, unspecified; G47.00 Insomnia, unspecified; N40.0 Benign prostatic hyperplasia without lower urinary tract symptoms; Z88.0 Allergy status to penicillin; Z88.8 Allergy status to other drugs, medicaments and biological substances; Z79.899 Other long term (current) drug therapy; Z79.84 Long term (current) use of oral hypoglycemic drugs; Z79.890 Hormone replacement therapy; Z98.49 Cataract extraction status, unspecified eye; Z98.890 Other specified postprocedural states; Z82.49 Family history of ischemic heart disease and other diseases of the circulatory system; Y83.8 Other surgical procedures as the cause of abnormal reaction of the patient, or of later complication, without mention of misadventure at the time of the procedure
CPT/HCPCS: 36415; 36416; 71045; 74022; 74177; 76705; 80053; 82550; 83605; 83690; 83735; 84100; 84443; 84484; 85025; 85610; 85730; 86850; 86900; 86901; 87040; 87070; 87076; 87077; 87186; 87205; 88304; 93005; 93010; 93306; 96361; 96365; 96366; 96368; 96375; 96376; C1889; C9113; J0171; J0282; J1100; J1644; J1650; J1815; J1885; J1956; J2250; J2270; J2272; J2405; J2543; J2704; J3010; J3370; J3475; J3480; J3490; J7050; J7070; J7120; J7620; Q9967; S0020

== ENCOUNTER 2023-05-24 06:15 | Emergency (ER) | payer BC ==
[2023-05-24] MEDS ORDERED: Ondansetron PF 4 MG/2 ML Vial ONE ×2 (06:23→09:36)
[2023-05-24 07:05] LABS: #Eosinphils 0.1 thou/uL (0.0-0.7); #Monocytes 0.8 thou/uL (0.11-0.59); #Neutrophils 4.2 thou/uL (1.40-6.50); %Basophils 0.3 % (0.0-1.0); %Eosinophils 0.9 % (0.0-10.0); %Monocytes 12.3 % (0.0-10.0); %Neutrophils 66.6 % (42.0-75.0); Hematocrit 36.7 % (42.0-52.0); Hemoglobin 12.1 g/dL (14.0-18.0); Mean Corpuscular Hemoglobin 30.6 pg (27.0-31.0); Mean Corpuscular Volume 92.7 fl (78.0-98.0); Mean Platelet Volume 9.2 fL (7.4-10.4); Platelet Count 287 10x3/uL (130-400); RBC Distribution Width 14.3 % (11.5-14.5); Red Blood Cell (RBC) Count 3.96 mill/uL (4.70-6.10); White Blood Cell (WBC) Count 6.3 10x3/uL (4.8-10.8)
[2023-05-24 07:30] LABS: CRP (Inflammatory) Less than 0.50 mg/dL (= or < 0.5); Lipase 35 U/L (8-78)
[2023-05-24 07:31] LABS: ALT (SGPT) 12 U/L (8-55); AST (SGOT) 18 U/L (5-34); Albumin 4.2 g/dL (3.4-4.8); Alkaline Phosphatase 68 U/L (40-110); Anion Gap 14 mmol/L (10-20); BUN (Urea Nitrogen) 20 mg/dL (8.4-25.7); Bilirubin, Total 1.1 mg/dL (0.2-1.2); Calc. Creatinine Clearance 0 mL/min (70-130); Calcium 8.9 mg/dL (7.8-10.44); Carbon Dioxide 24 mmol/L (23-31); Chloride 96 mmol/L (98-107); Estimated GFR 73; Globulin 2.9 g/dL (2.4-3.5); Glucose 126 mg/dL (80-115); Potassium 5.1 mmol/L (3.5-5.1); Protein, Total 7.1 g/dL (5.8-8.1); Sodium 129 mmol/L (136-145)
[2023-05-24 07:34] LABS: Troponin I 0.012 ng/mL (< 0.028)
[2023-05-24 09:11] LABS: Bacteria/HPF None Seen HPF (None Seen); Bilirubin Negative (Negative); Blood, Urine Negative (Negative); CAUTI Indications for Culture Pelvic or flank pain; Clarity Clear (Clear); Glucose, Urine (Dipstick) Normal (Negative); Ketone, Urine Negative (Negative); Leukocyte Negative Leu/uL (Negative); Nitrite Negative (Negative); Protein, Urine (Dipstick) Negative (Neg-Trace); RBC/HPF 0-3 HPF (0-3); Specific Gravity, Urine 1.038 (1.002-1.036); Squamous Epithelial 0-3 HPF (0-3); Urobilinogen Normal mg/dL (Less than 2); WBC/HPF 0-3 HPF (0-3); pH, Urine 5.5 (5.0-9.0)
[2023-05-24 09:16] LABS: Urine Culture Reflex No No
[2023-05-24] MEDS ORDERED: Iopamidol-370 76% 500 ML MDV (1 ML CHARGE) ONE (09:21)
== END 2023-05-24 11:09 | disposition home or self-care (01) ==
LOC: ERS 06:15
DX: R11.2 Nausea with vomiting, unspecified (principal); R10.9 Unspecified abdominal pain; E11.9 Type 2 diabetes mellitus without complications; I10 Essential (primary) hypertension; I48.91 Unspecified atrial fibrillation; Z79.84 Long term (current) use of oral hypoglycemic drugs; Z79.899 Other long term (current) drug therapy
CPT/HCPCS: 36415; 74177; 80053; 81001; 83690; 84484; 85025; 86140; 93005; 96361; 96374; 96376; J2405; Q9967

== ENCOUNTER 2023-07-07 11:36 | Inpatient (IN) | payer BC ==
[2023-07-07] MEDS ORDERED: Morphine 4 MG/ML VIAL ONE (12:40)
[2023-07-07 13:48] LABS: #Monocytes 1.3 thou/uL (0.11-0.59); %Basophils 0.1 % (0.0-1.0); %Eosinophils 0.2 % (0.0-10.0); %Lymphocytes 10.3 % (21.0-51.0); %Neutrophils 80.8 % (42.0-75.0); Hematocrit 38.9 % (42.0-52.0); Hemoglobin 12.7 g/dL (14.0-18.0); Mean Corpuscular HGB CONC 32.6 g/dL (32.0-36.0); Mean Corpuscular Hemoglobin 30.7 pg (27.0-31.0); Mean Platelet Volume 9.9 fL (7.4-10.4); Platelet Count 219 10x3/uL (130-400); RBC Distribution Width 13.2 % (11.5-14.5); Red Blood Cell (RBC) Count 4.14 mill/uL (4.70-6.10); White Blood Cell (WBC) Count 16.1 10x3/uL (4.8-10.8)
[2023-07-07] MEDS ORDERED: fentaNYL 50 mcg/mL 1 mL Vial ONE (13:52)
[2023-07-07 14:10] LABS: ALT (SGPT) 20 U/L (8-55); AST (SGOT) 19 U/L (5-34); Albumin 4.1 g/dL (3.4-4.8); Alkaline Phosphatase 69 U/L (40-110); Anion Gap 18 mmol/L (10-20); BUN (Urea Nitrogen) 22 mg/dL (8.4-25.7); Bilirubin, Total 0.6 mg/dL (0.2-1.2); Calc. Creatinine Clearance 0 mL/min (70-130); Calcium 9.5 mg/dL (7.8-10.44); Carbon Dioxide 19 mmol/L (23-31); Chloride 103 mmol/L (98-107); Estimated GFR 89; Globulin 3.1 g/dL (2.4-3.5); Glucose 166 mg/dL (80-115); INR-International Normal Ratio 1.1; PTT 28.4 sec (22.9-36.1); Potassium 3.8 mmol/L (3.5-5.1); Protein, Total 7.2 g/dL (5.8-8.1); Prothrombin Time 14.4 sec (12.0-14.7); Sodium 136 mmol/L (136-145)
[2023-07-07] MEDS ORDERED: Ketorolac Tromethamine 30 MG/ML VIAL ONE (14:38)
[2023-07-07] MEDS ORDERED: HYDROcodone/Acetaminophen 5/325 mg Tablet PO PRN ×2 (16:05→16:19)
[2023-07-07] MEDS ORDERED: Acetaminophen 325 MG TAB PO PRN (16:05)
[2023-07-07] MEDS ORDERED: Glucagon 1 MG/ML KIT IM PRN (16:13)
[2023-07-07] MEDS ORDERED: Dextrose 50% Abboject 50 ML SYRINGE SLOW IVP PRN (16:13)
[2023-07-07] MEDS ORDERED: Dextrose 5% in Water 1,000 ML IV PRN (16:13)
[2023-07-07] MEDS ORDERED: HumaLOG 300 UNITS/3 ML VIAL SC PRN ×2 (16:13)
[2023-07-07] MEDS ORDERED: Lidocaine 4% Patch TD PRN (16:19)
[2023-07-07 16:46] LABS: Troponin I Less than 0.010 ng/mL (< 0.028)
[2023-07-07 16:47] VITALS: BMI 30.7
[2023-07-07] MEDS ORDERED: Naloxone HCl 0.4 mg/ml Vial IV PRN (17:04)
[2023-07-07] MEDS: Ibuprofen 800 MG TAB PO SCH ×2 (17:30→21:47)
[2023-07-07] MEDS: Acetaminophen 500 MG TAB PO SCH ×2 (17:31→21:46)
[2023-07-07] MEDS ORDERED: oxyCODONE 5 MG TAB PO SCH (17:45)
[2023-07-07 18:20] LABS: Magnesium 1.7 mg/dL (1.6-2.6)
[2023-07-07] MEDS ORDERED: Apixaban 5 MG TAB PO SCH (21:00)
[2023-07-07] MEDS: Cyclobenzaprine 10 MG TAB PO PRN (21:46)
[2023-07-08 05:03] LABS: #Eosinphils 0.1 thou/uL (0.0-0.7); #Monocytes 0.8 thou/uL (0.11-0.59); %Basophils 0.2 % (0.0-1.0); %Eosinophils 0.9 % (0.0-10.0); %Monocytes 14.4 % (0.0-10.0); %Neutrophils 55.1 % (42.0-75.0); Hematocrit 33.2 % (42.0-52.0); Mean Corpuscular HGB CONC 33.1 g/dL (32.0-36.0); Mean Corpuscular Hemoglobin 30.8 pg (27.0-31.0); Mean Platelet Volume 10.3 fL (7.4-10.4); Platelet Count 201 10x3/uL (130-400); RBC Distribution Width 13.3 % (11.5-14.5); Red Blood Cell (RBC) Count 3.57 mill/uL (4.70-6.10); White Blood Cell (WBC) Count 5.4 10x3/uL (4.8-10.8)
[2023-07-08] MEDS: Acetaminophen 500 MG TAB PO SCH ×3 (05:58→22:30)
[2023-07-08] MEDS: Ibuprofen 800 MG TAB PO SCH ×3 (05:59→21:39)
[2023-07-08 06:22] LABS: Anion Gap 16 mmol/L (10-20); BUN (Urea Nitrogen) 27 mg/dL (8.4-25.7); Calc. Creatinine Clearance 120 mL/min (70-130); Calcium 9.2 mg/dL (7.8-10.44); Carbon Dioxide 21 mmol/L (23-31); Chloride 105 mmol/L (98-107); Estimated GFR 96; Glucose 110 mg/dL (80-115); Potassium 4.1 mmol/L (3.5-5.1); Sodium 138 mmol/L (136-145)
[2023-07-08] MEDS: oxyCODONE 5 MG TAB PO PRN (16:08)
[2023-07-08] MEDS: glipiZIDE 5 MG TAB PO SCH (17:07)
[2023-07-08] MEDS: metFORMIN XR 500 MG ER.TAB PO SCH (17:08)
[2023-07-08] MEDS: Apixaban 5 MG TAB PO SCH (21:38)
[2023-07-08] MEDS: Atorvastatin Calcium 20 MG TAB PO SCH (21:38)
[2023-07-08] MEDS: Cyclobenzaprine 10 MG TAB PO PRN (21:42)
[2023-07-09] MEDS: oxyCODONE 5 MG TAB PO PRN ×3 (03:46→21:26)
[2023-07-09] MEDS ORDERED: Lidocaine 2% Viscous Solution 10 ML, Aluminum & Magnesium Hydroxide 30 ML SSW SCH ×2 (04:30→22:45)
[2023-07-09] MEDS: Acetaminophen 500 MG TAB PO SCH ×4 (04:47→23:00)
[2023-07-09] MEDS: Ibuprofen 800 MG TAB PO SCH ×3 (05:53→21:28)
[2023-07-09] MEDS: Levothyroxine Sodium 100 MCG TAB PO SCH (05:54)
[2023-07-09] MEDS: glipiZIDE 5 MG TAB PO SCH ×2 (07:25→17:03)
[2023-07-09] MEDS: metFORMIN XR 500 MG ER.TAB PO SCH ×2 (09:05→17:03)
[2023-07-09] MEDS: dilTIAZem CD 120 MG CAP PO SCH (09:06)
[2023-07-09] MEDS: Apixaban 5 MG TAB PO SCH ×2 (09:06→21:28)
[2023-07-09] MEDS ORDERED: Brimonidine Tartrate 0.2% Ophth Soln 5 ml Bottle R EYE SCH (09:45)
[2023-07-09] MEDS ORDERED: Transdermal Patch Removal TOP PRN (12:15)
[2023-07-09] MEDS: Cyclobenzaprine 10 MG TAB PO PRN ×2 (14:12→21:31)
[2023-07-09] MEDS ORDERED: Non-Formulary Item 1 EACH (Brimonidine Tartrate [Brimonidine Tartrate 0.15% Ophth Soln] 1 EA EYE SCH (21:00)
[2023-07-09] MEDS ORDERED: Latanoprost 0.005% Ophth Soln 2.5 ml Bottle EA EYE SCH (21:00)
[2023-07-09] MEDS: Atorvastatin Calcium 20 MG TAB PO SCH (21:27)
[2023-07-09] MEDS: Latanoprost 0.005% Ophth Soln 2.5 ml Bottle EA EYE SCH (21:28)
[2023-07-09] MEDS: Brimonidine Tartrate 0.2% Ophth Soln 5 ml Bottle R EYE SCH (21:29)
[2023-07-09] MEDS ORDERED: Calcium Carbonate 500 MG ChewTAB PO PRN (22:34)
[2023-07-10] MEDS: Acetaminophen 500 MG TAB PO SCH ×5 (05:00→23:00)
[2023-07-10] MEDS: Ibuprofen 800 MG TAB PO SCH ×3 (06:02→21:04)
[2023-07-10] MEDS: Levothyroxine Sodium 100 MCG TAB PO SCH (06:05)
[2023-07-10] MEDS: glipiZIDE 5 MG TAB PO SCH ×2 (08:08→16:24)
[2023-07-10] MEDS: metFORMIN XR 500 MG ER.TAB PO SCH ×2 (08:08→17:21)
[2023-07-10] MEDS: dilTIAZem CD 120 MG CAP PO SCH (09:04)
[2023-07-10] MEDS: Apixaban 5 MG TAB PO SCH ×2 (09:04→20:52)
[2023-07-10] MEDS: Brimonidine Tartrate 0.2% Ophth Soln 5 ml Bottle R EYE SCH ×2 (09:05→20:53)
[2023-07-10] MEDS ORDERED: Polyethylene Glycol 3350 17 GM Packet PO SCH (10:00)
[2023-07-10] MEDS: Cyclobenzaprine 10 MG TAB PO PRN (14:46)
[2023-07-10] MEDS: Atorvastatin Calcium 20 MG TAB PO SCH (20:52)
[2023-07-10] MEDS: Latanoprost 0.005% Ophth Soln 2.5 ml Bottle EA EYE SCH (20:54)
[2023-07-11] MEDS: Acetaminophen 500 MG TAB PO SCH ×5 (05:30→22:11)
[2023-07-11] MEDS: Levothyroxine Sodium 100 MCG TAB PO SCH (06:29)
[2023-07-11] MEDS: Ibuprofen 800 MG TAB PO SCH ×3 (06:29→22:00)
[2023-07-11] MEDS: oxyCODONE 5 MG TAB PO PRN (06:32)
[2023-07-11] MEDS: glipiZIDE 5 MG TAB PO SCH ×2 (08:55→16:54)
[2023-07-11] MEDS: metFORMIN XR 500 MG ER.TAB PO SCH ×2 (08:57→17:11)
[2023-07-11] MEDS: Apixaban 5 MG TAB PO SCH ×2 (08:57→22:00)
[2023-07-11] MEDS: Polyethylene Glycol 3350 17 GM Packet PO SCH (08:57)
[2023-07-11] MEDS: Brimonidine Tartrate 0.2% Ophth Soln 5 ml Bottle R EYE SCH ×2 (08:57→22:01)
[2023-07-11] MEDS: Senokot S 8.6-50 MG TAB PO SCH ×2 (11:04→22:00)
[2023-07-11] MEDS: dilTIAZem CD 120 MG CAP PO SCH (11:04)
[2023-07-11] MEDS: Cyclobenzaprine 10 MG TAB PO PRN ×2 (15:02→22:00)
[2023-07-11] MEDS: Lidocaine 4% Patch TD SCH (19:35)
[2023-07-11] MEDS: Atorvastatin Calcium 20 MG TAB PO SCH (22:00)
[2023-07-11] MEDS: Latanoprost 0.005% Ophth Soln 2.5 ml Bottle EA EYE SCH (22:01)
[2023-07-11] MEDS: Transdermal Patch Removal TOP SCH (22:03)
[2023-07-12] MEDS: Acetaminophen 500 MG TAB PO SCH ×5 (05:32→23:49)
[2023-07-12] MEDS: Levothyroxine Sodium 100 MCG TAB PO SCH (05:33)
[2023-07-12] MEDS: Ibuprofen 800 MG TAB PO SCH ×3 (05:33→21:20)
[2023-07-12 09:13] LABS: #Eosinphils 0.1 thou/uL (0.0-0.7); #Monocytes 0.6 thou/uL (0.11-0.59); #Neutrophils 3.9 thou/uL (1.40-6.50); %Eosinophils 2.1 % (0.0-10.0); %Monocytes 10.1 % (0.0-10.0); %Neutrophils 67.3 % (42.0-75.0); Hematocrit 33.9 % (42.0-52.0); Mean Corpuscular HGB CONC 32.4 g/dL (32.0-36.0); Mean Corpuscular Hemoglobin 30.6 pg (27.0-31.0); Mean Corpuscular Volume 94.2 fl (78.0-98.0); Platelet Count 255 10x3/uL (130-400); RBC Distribution Width 13.2 % (11.5-14.5); White Blood Cell (WBC) Count 5.8 10x3/uL (4.8-10.8)
[2023-07-12 09:38] LABS: ALT (SGPT) 14 U/L (8-55); AST (SGOT) 18 U/L (5-34); Albumin 3.9 g/dL (3.4-4.8); Alkaline Phosphatase 75 U/L (40-110); Anion Gap 15 mmol/L (10-20); BUN (Urea Nitrogen) 34 mg/dL (8.4-25.7); Calc. Creatinine Clearance 81 mL/min (70-130); Calcium 9.5 mg/dL (7.8-10.44); Carbon Dioxide 23 mmol/L (23-31); Chloride 101 mmol/L (98-107); Estimated GFR 61; Globulin 3.4 g/dL (2.4-3.5); Glucose 116 mg/dL (80-115); Potassium 4.7 mmol/L (3.5-5.1); Protein, Total 7.3 g/dL (5.8-8.1); Sodium 134 mmol/L (136-145)
[2023-07-12] MEDS: glipiZIDE 5 MG TAB PO SCH ×2 (09:39→17:00)
[2023-07-12] MEDS: Apixaban 5 MG TAB PO SCH ×2 (09:39→21:20)
[2023-07-12] MEDS: metFORMIN XR 500 MG ER.TAB PO SCH ×2 (09:39→17:01)
[2023-07-12] MEDS: Senokot S 8.6-50 MG TAB PO SCH ×2 (09:39→21:20)
[2023-07-12] MEDS: dilTIAZem CD 120 MG CAP PO SCH (09:39)
[2023-07-12] MEDS: Polyethylene Glycol 3350 17 GM Packet PO SCH (09:40)
[2023-07-12] MEDS: Lidocaine 4% Patch TD SCH (09:40)
[2023-07-12] MEDS: Latanoprost 0.005% Ophth Soln 2.5 ml Bottle EA EYE SCH ×2 (09:40→21:21)
[2023-07-12] MEDS: Brimonidine Tartrate 0.2% Ophth Soln 5 ml Bottle R EYE SCH ×2 (09:41→21:21)
[2023-07-12] MEDS: oxyCODONE 5 MG TAB PO PRN (21:19)
[2023-07-12] MEDS: Transdermal Patch Removal TOP SCH (21:19)
[2023-07-12] MEDS: Atorvastatin Calcium 20 MG TAB PO SCH (21:20)
[2023-07-13] MEDS: Acetaminophen 500 MG TAB PO SCH ×3 (05:29→17:54)
[2023-07-13] MEDS: Levothyroxine Sodium 100 MCG TAB PO SCH (05:30)
[2023-07-13] MEDS: Ibuprofen 800 MG TAB PO SCH ×3 (05:30→21:54)
[2023-07-13] MEDS: glipiZIDE 5 MG TAB PO SCH ×2 (08:42→18:32)
[2023-07-13] MEDS: Apixaban 5 MG TAB PO SCH ×2 (08:42→21:55)
[2023-07-13] MEDS: Senokot S 8.6-50 MG TAB PO SCH ×2 (08:42→22:02)
[2023-07-13] MEDS: dilTIAZem CD 120 MG CAP PO SCH (08:42)
[2023-07-13] MEDS: metFORMIN XR 500 MG ER.TAB PO SCH ×2 (08:43→18:32)
[2023-07-13] MEDS: Lidocaine 4% Patch TD SCH (08:44)
[2023-07-13] MEDS: Latanoprost 0.005% Ophth Soln 2.5 ml Bottle EA EYE SCH ×2 (08:44→21:55)
[2023-07-13] MEDS: Polyethylene Glycol 3350 17 GM Packet PO SCH (08:44)
[2023-07-13] MEDS: Brimonidine Tartrate 0.2% Ophth Soln 5 ml Bottle R EYE SCH ×2 (08:44→21:56)
[2023-07-13] MEDS ORDERED: Sodium Chloride 0.9% 1,000 ML IV SCH (09:15)
[2023-07-13] MEDS: Cyclobenzaprine 10 MG TAB PO PRN (21:54)
[2023-07-13] MEDS: Atorvastatin Calcium 20 MG TAB PO SCH (21:55)
[2023-07-13] MEDS: Transdermal Patch Removal TOP SCH (22:06)
[2023-07-14] MEDS: Acetaminophen 500 MG TAB PO SCH ×4 (01:16→16:58)
[2023-07-14] MEDS: Cyclobenzaprine 10 MG TAB PO PRN ×2 (04:00→20:07)
[2023-07-14] MEDS: Ibuprofen 800 MG TAB PO SCH ×3 (05:59→22:07)
[2023-07-14] MEDS: Levothyroxine Sodium 100 MCG TAB PO SCH (06:00)
[2023-07-14] MEDS: metFORMIN XR 500 MG ER.TAB PO SCH ×2 (08:23→16:57)
[2023-07-14] MEDS: dilTIAZem CD 120 MG CAP PO SCH (08:23)
[2023-07-14] MEDS: Apixaban 5 MG TAB PO SCH ×2 (08:23→20:07)
[2023-07-14] MEDS: Senokot S 8.6-50 MG TAB PO SCH ×2 (08:23→20:07)
[2023-07-14] MEDS: glipiZIDE 5 MG TAB PO SCH ×2 (08:23→16:57)
[2023-07-14] MEDS: Brimonidine Tartrate 0.2% Ophth Soln 5 ml Bottle R EYE SCH ×2 (08:24→20:07)
[2023-07-14] MEDS: Latanoprost 0.005% Ophth Soln 2.5 ml Bottle EA EYE SCH ×2 (08:24→20:08)
[2023-07-14] MEDS: Lidocaine 4% Patch TD SCH (08:25)
[2023-07-14] MEDS: Polyethylene Glycol 3350 17 GM Packet PO SCH (10:42)
[2023-07-14] MEDS: Atorvastatin Calcium 20 MG TAB PO SCH (20:07)
[2023-07-14] MEDS: Transdermal Patch Removal TOP SCH (22:09)
[2023-07-15] MEDS: Levothyroxine Sodium 100 MCG TAB PO SCH (05:24)
[2023-07-15] MEDS: Acetaminophen 500 MG TAB PO SCH ×3 (05:25→12:03)
[2023-07-15] MEDS: Ibuprofen 800 MG TAB PO SCH ×2 (06:30→13:59)
[2023-07-15 08:21] VITALS: BP 114/64; TEMP 97.9
[2023-07-15] MEDS: Brimonidine Tartrate 0.2% Ophth Soln 5 ml Bottle R EYE SCH (09:12)
[2023-07-15] MEDS: Latanoprost 0.005% Ophth Soln 2.5 ml Bottle EA EYE SCH (09:12)
[2023-07-15] MEDS: Polyethylene Glycol 3350 17 GM Packet PO SCH (09:13)
[2023-07-15 09:15] LABS: Hemoglobin A1c 5.4 % (4.0-6.0)
[2023-07-15] MEDS: Apixaban 5 MG TAB PO SCH (09:15)
[2023-07-15] MEDS: Senokot S 8.6-50 MG TAB PO SCH (09:15)
[2023-07-15] MEDS: dilTIAZem CD 120 MG CAP PO SCH (09:16)
[2023-07-15] MEDS: metFORMIN XR 500 MG ER.TAB PO SCH (09:17)
[2023-07-15] MEDS: glipiZIDE 5 MG TAB PO SCH (09:17)
[2023-07-15] MEDS: Lidocaine 4% Patch TD SCH (09:19)
[2023-07-15 09:21] LABS: Anion Gap 14 mmol/L (10-20); BUN (Urea Nitrogen) 28 mg/dL (8.4-25.7); Calc. Creatinine Clearance 95 mL/min (70-130); Calcium 9.5 mg/dL (7.8-10.44); Carbon Dioxide 23 mmol/L (23-31); Chloride 102 mmol/L (98-107); Estimated GFR 74; Glucose 193 mg/dL (80-115); Potassium 4.7 mmol/L (3.5-5.1); Sodium 134 mmol/L (136-145)
== END 2023-07-15 16:36 | DRG 563 ==
LOC: ERS 11:36 → 2NO 15:30 → MSONC 07-08 13:54 → OBSVTOIN 07-09 09:44
PROVIDERS: ADMIT Family Medicine; ATTEND Family Medicine
PROC: 0PSFXZZ Reposition Right Humeral Shaft, External Approach (ICD-10-PCS; principal; 2023-07-07)
DX: S42.361A Displaced segmental fracture of shaft of humerus, right arm, initial encounter for closed fracture (principal); E87.1 Hypo-osmolality and hyponatremia; I10 Essential (primary) hypertension; E78.5 Hyperlipidemia, unspecified; K59.00 Constipation, unspecified; K21.9 Gastro-esophageal reflux disease without esophagitis; E11.649 Type 2 diabetes mellitus with hypoglycemia without coma; E03.9 Hypothyroidism, unspecified; I25.2 Old myocardial infarction; G47.00 Insomnia, unspecified; I45.81 Long QT syndrome; N40.0 Benign prostatic hyperplasia without lower urinary tract symptoms; I48.91 Unspecified atrial fibrillation; W18.30XA Fall on same level, unspecified, initial encounter; Z98.890 Other specified postprocedural states; Z82.49 Family history of ischemic heart disease and other diseases of the circulatory system; Z88.8 Allergy status to other drugs, medicaments and biological substances; Z90.49 Acquired absence of other specified parts of digestive tract; Z88.0 Allergy status to penicillin; Z79.899 Other long term (current) drug therapy; Z79.890 Hormone replacement therapy; Z79.84 Long term (current) use of oral hypoglycemic drugs
CPT/HCPCS: 36415; 36416; 80048; 80053; 83036; 83735; 84443; 84484; 85025; 85610; 85730; 93005; 96374; 96375; G0390; J1650; J1885; J2270; J3010; J7050